=== PATIENT | male | born 1995 | race Caucasian/White ===

== ENCOUNTER 2024-05-09 18:22 | Emergency (ER) | payer BC, SELFPAY ==
[2024-05-09 18:23] VITALS: BP 102/79; PULSE 65; RESP 16; TEMP 36.3; O2SAT 99; BMI 29.9
[2024-05-09 20:22] VITALS: BP 121/75; PULSE 51; RESP 18; O2SAT 96
--- NOTE | 2024-05-09 20:27 | EX.ED.DYSGE1 ---
HPI History of Present Illness Chief Complaint: Hypertension Informant: patient Onset/Context/Timing Onset: Days (2) Context: Gradual Onset Timing: Intermittent Quality: Fluttering Location: Chest Worsened by: Nothing Relieved by: Nothing Narrative Narrative: Patient presents with palpitations that have been intermittent over the past couple days. Patient states it feels like there is fluttering in his chest. Patient states that when he came home from work today he checked his blood pressure and it was 180/134. Patient denies any chest pain. Patient denies any shortness of breath or cough. Patient states nothing makes his symptoms better and nothing makes them worse. Patient denies any fevers or chills. Patient denies any other symptoms. [facility] Medical History (Updated 05/09/24 @ 22:[address] Mehran Will DO) Asthma Home Medications ?Medication ?Instructions ?Recorded ?Last Taken ?Type No Known/Unobtainable [No Known 06/09/15 Unknown History Home Medications] Allergy/AdvReac Type Severity Reaction Status Date / Time No Known Allergies Allergy Verified 05/09/24 18:23 Family History (Updated 07/29/20 @ 12:41 by Velvet Finney) Other Hypertension Surgical History (Updated 05/09/24 @ 20:[address] Mehran Will DO) History of tonsillectomy and adenoidectomy Social History Smoking Status: Never smoker Smokeless tobacco user: chewing tobacco alcohol intake: current alcohol intake frequency: a few times a week ROS ROS ED Constitutional Constitutional ED: Denies chills or fever(s) Eyes Eyes: Denies blurry vision or change in vision ENT ENT ED: Denies rhinorrhea or sore throat Cardiovascular Cardiovascular: Reports palpitations; Denies chest pain Respiratory/Chest Respiratory/Chest: Denies cough or dyspnea Gastrointestinal Gastrointestinal: Denies nausea or vomiting Genitourinary Genitourinary ED: Denies dysuria or hematuria Musculoskeletal Musculoskeletal: Reports back pain and neck pain Integumentary Denies abscess or rash Neurologic Neurologic: Denies headache(s) or weakness Allergic/Immunologic Allergic/Immunologic ED: Denies mouth swelling or urticaria EXAM Physical Exam Const Vital Signs: 05/09/24 18:23 05/09/24 19:37 05/09/24 20:22 Temperature 97.4 F L Temperature Source Temporal Pulse Rate 65 51 L Respiratory Rate 16 18 Respiratory Effort Normal Respiratory Pattern Normal Blood Pressure 102/79 121/75 H Blood Pressure Mean 86 90 Pulse Ox 99 96 Oxygen Delivery Method Room Air Room Air Positive well nourished and well developed General Appearance ED: well developed and NAD HEENT Reports moist mucous membranes Neck supple and no JVD Resp normal respiratory effort and clear to auscultation bilaterally Cardio regular rate and regular rhythm GI non-tender and non-distended Palpation: soft Neuro oriented x3, CN's II-XII intact bilaterally and no sensory deficits noted Sensorium / Orientation: alert Motor Exam: strength 5/5 throughout Psych mental status grossly normal MDM MDM MDM Narrative Medical decision making narrative: Differential diagnosis is cardiac dysrhythmia, cardiac ischemia, electrolyte abnormality, acute kidney injury, and palpitations. EKG will be obtained to assess for cardiac dysrhythmia and cardiac ischemia. Chest x-ray will be obtained to assess for pneumonia and pneumothorax. CBC will be obtained to assess for leukocytosis and anemia. Basic metabolic profile will be obtained to assess for electrolyte abnormality and renal function. High-sensitivity troponin will be obtained to assess for cardiac ischemia. Lab Data Attestation: I reviewed the patient's lab results. Lab results narrative: CBC was reviewed and was within normal limits. Basic metabolic profile was reviewed and was within normal limits. High-sensitivity troponin was reviewed and was normal at 5. Labs: Laboratory Results - last 24 hr 05/09/24 20:52 WBC 9.9 RBC 5.15 Hgb 14.7 Hct 42.4 MCV 82.3 MCH 28.5 MCHC 34.7 RDW Std Deviation 36.5 RDW Coeff of [place] 12.2 Plt Count 294 MPV 9.0 Immature Gran % (Auto) 0.200 Neut % (Auto) 54.5 Lymph % (Auto) 36.5 [place] % (Auto) 6.5 Eos % (Auto) 1.6 Baso % (Auto) 0.7 Absolute Neuts (auto) 5.4 Absolute Lymphs (auto) 3.61 Nucleated RBC % 0 Sodium 138 Potassium 4.2 Chloride 108 H Carbon Dioxide 26.0 Anion Gap 4 L BUN 18 Creatinine 0.94 Estim Creat Clear Calc 147.49 Est GFR (MDRD) Af Amer 123 Est GFR (MDRD) Non-Af 101 BUN/Creatinine Ratio 19.1 Glucose 90 Calcium 9.4 Troponin I High Sens 5 Radiography Chest X-Ray - ED: 2 View, Read by ED Physician, Read by Radiologist and No Acute Disease Diagnostic Testing: Clinical Impression(s) from Imaging Studies Chest X-Ray 05/09/24 20:41 IMPRESSION: Normal x-ray examination of the chest. Electronically Signed: Roshan Barth MD at 21:43 EST , PA and lateral chest x-ray was obtained. There are 2 views. On my independent interpretation, lung serrato are clear. There is normal cardiac silhouette. Bony thorax is normal. There is no acute process noted. Radiologist also interpreted the x-ray and agrees. EKG Initial EKG: Attestation: I personally reviewed and interpreted this EKG as follows: Interpretation: No Acute Injury Pattern and Sinus Bradycardia (49) Comments: EKG was obtained. On my independent interpretation, it showed a sinus bradycardia with a rate of 49. NV interval, QRS interval, and QTc intervals were all normal. [place] was normal. There are no acute ST or T wave changes. Treatment and Re-Evaluation :: Patient's blood pressure remained stable here in the emergency department. Patient was advised of his findings. Patient was instructed to follow-up with his primary care physician in 5 to 7 days. Patient was instructed return if worse in any way. Patient understood and was agreeable with the plan. All questions were answered. Discharge Plan Triage Chief Complaint: Hypertension ED Provider: Mehran Will Dx/Rx/DC Orders Clinical Impression: Elevated blood pressure reading, Tobacco use Instructions: ED Hypertension, To Be Confirmed Prescriptions: No Action No Known Home Medications Primary Care Provider: Care Physician,No Primary Referrals: Gina Koehler MD [Med Staff - Exchange Underwriting Consultant] - 5-7 Days Care Physician,No Primary [Primary Care Provider] - Print Language: Faroese Disposition Disposition: Home, Self Care
--- NOTE | 2024-05-09 20:41 | EKG12_ITS ---
Test Reason : Blood Pressure : */* mmHG Vent. Rate : 49 BPM Atrial Rate : 49 BPM P-R Int : 170 ms QRS Dur : 92 ms QT Int : 458 ms P-R-T Axes : 17 10 40 degrees QTcB Int : 413 ms Sinus bradycardia Otherwise normal ECG Confirmed by KEERTHI BLOOM, TERRENCE ([id number]), video tape editor KEVIN CHRISTENSEN ([id number]) on 05/13/2024 10:12:17 AM Referred By: Confirmed By: TERRENCE PENDLETON MD
--- NOTE | 2024-05-09 20:41 | RAD_ITS ---
STUDY: X-RAY CHEST REASON FOR EXAM: Male, 29 years old. Hypertension TECHNIQUE: Frontal and lateral views of the chest. COMPARISON: None. FINDINGS: The lungs are clear and expanded. There is no demonstrated pleural abnormality. Normal size heart. Normal mediastinum and cornel. Normal visualized pulmonary arteries. Normal visualized aortic arch and descending thoracic aorta. Normal visualized thoracic spine. Normal visualized ribs, clavicles, and shoulders. There is no demonstrated abnormality of the visualized soft tissue structures of the upper abdomen. RAD/Chest PA and Lateral IMPRESSION: Normal x-ray examination of the chest. Electronically Signed: Roshan Barth MD at 21:43 EST ,
[2024-05-09 20:57] LABS: Absolute Lymphocyte Count 3.61 X10^3/uL (0.83-4.51); Absolute Neutrophil Count 5.4 X10^3/uL (2.0-7.7); Basophil# 0.07 X10^3/uL; Basophil% 0.7 % (0-1); Eosinophil# 0.16 X10^3/uL; Eosinophils% 1.6 % (0-5); Hematocrit 42.4 % (40-54); Hemoglobin 14.7 g/dL (13.0-16.5); Lymphocyte # 3.61 X10^3/ul (0.83-4.51); Lymphocyte % 36.5 % (19-41); Mean Corp Hgb Conc 34.7 g/dL (32-36); Mean Corpuscular Hgb 28.5 pg (27.0-32.0); Mean Corpuscular Volume 82.3 fL (80-94); Monocyte# 0.64 X10^3/uL; Monocyte% 6.5 % (0-10); NRBC Flagged by Analyzer 0 % (0-5); Neutrophil % 54.5 % (47-70); Platelet Count 294 K/mm3 (150-450); RBC Distribution Width CV 12.2 % (11.6-14.6); RBC Distribution Width SD 36.5 fl (35.1-43.9); Red Blood Count 5.15 M/mm3 (4.6-6.2); White Blood Count 9.9 K/mm3 (4.4-11.0)
[2024-05-09 21:19] LABS: Anion Gap 4 (5-15); BUN 18 mg/dL (7-18); BUN/Creat Ratio 19.1 RATIO (10-20); Calcium,Total 9.4 mg/dL (8.5-10.1); Chloride 108 mmol/L (98-107); Creatinine, Serum 0.94 mg/dL (0.70-1.30); EST Glomerular Filtration Rate 101 mL/min (>60); Est Glom Filt Rate - Afr Amer 123 mL/min (>60); Estimated Creatinine Clearance 147.49 ml/min; Glucose 90 mg/dL (74-106); Potassium 4.2 mmol/L (3.5-5.1); Sodium Level 138 mmol/L (136-145); Troponin-I HS 5 pg/mL (3.0-78.0)
[2024-05-09 22:00] VITALS: BP 121/69; PULSE 50; RESP 16; O2SAT 98
[2024-05-09 22:19] VITALS: BP 121/69; PULSE 59; RESP 18; TEMP 36.6; O2SAT 98
== END 2024-05-09 22:22 | disposition home or self-care (01) ==
PROVIDERS: Emergency Provider Emergency Medicine; Visit Provider Emergency Medicine
DX: R00.2 Palpitations (principal); R03.0 Elevated blood-pressure reading, without diagnosis of hypertension; J45.909 Unspecified asthma, uncomplicated; F17.220 Nicotine dependence, chewing tobacco, uncomplicated
CPT/HCPCS: 71046; 80048; 84484; 85025; 93005; 99283; A4216